=== PATIENT | male | born 1940 | race Caucasian/White ===

== ENCOUNTER 2024-09-08 11:08 | Emergency (ER) | payer MEDICARE ==
[~2024-09-08] VITALS: Ht 182.9 cm; Wt 109.0 kg
[2024-09-08 11:09] VITALS: O2SAT 98
[2024-09-08] MEDS: LACTATED RINGERS 1,000 ML IV SCH (11:28)
[2024-09-08 11:49] LABS: BASOPHILS % 0.5 % (0.0-2.0); EOSINOPHILS % 0.3 % (0.0-5.0); HEMATOCRIT. 42.1 % (42.0-52.0); HEMOGLOBIN. 14.3 g/dL (14.0-18.0); LYMPHOCYTES % 10.3 % (20.0-50.0); MEAN CORPUSCULAR HGB CONC 33.9 g/dL (31.0-37.0); MEAN CORPUSCULAR VOLUME 91.4 fL (80.0-94.0); MEAN PLATELET VOLUME 7.8 fl (7.4-10.4); MONOCYTES % 1.1 % (2.0-8.0); NEUTROPHILS % 87.8 % (40.0-76.0); PLATELET 194 x1000/uL (130-400); RED BLOOD CELL COUNT 4.61 mill/uL (4.7-6.1); RED CELL DISTRIBUTION WIDTH 13.1 % (11.6-14.6); WHITE BLOOD COUNT 9.8 x1000/uL (4.5-11.0)
[2024-09-08 11:52] LABS: CHLORIDE 110 mEq/L (98-107); POTASSIUM 4.2 mEq/L (3.5-5.1); SODIUM 145 mEq/L (136-145)
[2024-09-08 11:53] LABS: CARBON DIOXIDE 21 mEq/L (21-32)
[2024-09-08 11:54] LABS: CALCIUM 9.2 mg/dL (8.7-10.4)
[2024-09-08 11:58] LABS: CREATININE 1.1 mg/dL (0.6-1.3); GLUCOSE 256 mg/dL (70-105)
[2024-09-08 11:59] LABS: TROPONIN I HIGH SENSITIVITY 19 ng/L (3.0-53); UREA NITROGEN BLOOD 19 mg/dL (9-23)
[2024-09-08 12:00] LABS: ALANINE AMINOTRANSFERASE 19 IU/L (10-49); ALBUMIN 4.6 g/dL (3.2-4.8); ASPARTATE AMINOTRANSFERASE 20 IU/L (<34)
[2024-09-08 12:01] LABS: BILIRUBIN DIRECT 0.1 mg/dL (<=3.0); BILIRUBIN TOTAL 0.5 mg/dL (0.1-1.0); PROTEIN TOTAL 7.6 g/dL (6.0-8.3)
[2024-09-08 13:25] VITALS: BP 191/92; PULSE 81; RESP 15; TEMP 36.7; O2SAT 98
[2024-09-08] MEDS ORDERED: CLONIDINE 0.2MG TABLET PO SCH (13:30)
== END 2024-09-08 13:57 | disposition left against medical advice (07) ==
LOC: ER 11:08 → EDBEDREQTM 12:27 → EDBEDREQ 12:27 → ENRESERV 12:35 → CANRESERV 12:35 → CANBEDREQ 13:37 → ER 13:57
DX: R00.0 Tachycardia, unspecified (principal); E11.9 Type 2 diabetes mellitus without complications; E78.00 Pure hypercholesterolemia, unspecified
CPT/HCPCS: 99291; 96360; 80076; 80048; 85025; 84484; 36415; 71045; 93005; J7120; A4606